=== PATIENT | female | born 1950 | race Caucasian/White ===

== ENCOUNTER 2017-09-11 08:11 | Inpatient (IN) ==
[2017-09-03 13:04] LABS: Appearance,Urine CLEAR; Bilirubin,Urine NEG (NEG); Color,Urine STRAW; Glucose,Urine (UA) NEGATIVE (NEG); Leukocyte Esterase,Urine NEG /uL (NEG); Protein,Urine NEG (NEG); Specific Gravity,Urine 1.011 (1.000-1.035); Urine Blood NEG mg/dL (<0.03); Urobilinogen,Urine NEG (NEG)
[2017-09-03 14:07] LABS: Basophils # (Auto) 0 K/mcL (0.0-0.3); Basophils % (Auto) 0.4 % (0.0-2.0); Eosinophils # (Auto) 0.2 K/mcL (0.0-0.7); Eosinophils % (Auto) 2.8 % (0.0-7.0); Granulocytes % (Auto) 58.3 % (38.0-78.0); Lymphocytes # (Auto) 2.2 K/mcL (1.5-4.8); Lymphocytes % (Auto) 33.5 % (15.5-49.0); Mean Cell Volume 88.6 fL (80.0-100.0); Mean Corpuscular HGB Conc 33.3 g/dL (31.0-36.0); Mean Corpuscular Hemoglobin 29.5 pg (26.0-34.0); Monocytes # (Auto) 0.3 K/mcL (0.1-0.9); Platelet Count 299 K/mcL (140-440); RBC 4.96 M/mcL (4.00-5.20); Red Cell Distribution Width 12.6 % (11.5-14.5)
[2017-09-03 14:18] LABS: Blood Urea Nitrogen 22 mg/dl (8-23)
[~2017-09-11 08:11] MED LIST: CELECOXIB 200 MG CAPSULE PO SCH; ceFAZolin 1 GM VIAL IV SCH; oxyCODONE 10 MG TAB.ER.12H PO SCH
[2017-09-11] MEDS: GABAPENTIN 300 MG CAPSULE PO SCH ×4 (09:22→20:30)
[2017-09-11] MEDS ORDERED: PROPOFOL 200 MG/20 ML VIAL IV ONE (12:05)
[2017-09-11] MEDS ORDERED: LIDOCAINE HCL/PF 100 MG/5 ML SYRINGE IV ONE (12:05)
[2017-09-11] MEDS ORDERED: ePHEDrine 50 MG/ML AMPUL IV ONE (12:05)
[2017-09-11] MEDS ORDERED: SUCCINYLCHOLINE 20 MG/ML ML IV ONE (12:05)
[2017-09-11] MEDS ORDERED: DEXAMETHASONE 10 MG/ML VIAL IV ONE (12:05)
[2017-09-11] MEDS ORDERED: TRANEXAMIC ACID 1,000 MG/10 ML VIAL IV ONE (12:05)
[2017-09-11] MEDS ORDERED: fentaNYL 100 MCG/2 ML VIAL IV ONE (12:05)
[2017-09-11] MEDS ORDERED: KETAMINE 100 MG/ML ML IV ONE (12:05)
[2017-09-11] MEDS ORDERED: ONDANSETRON 4 MG/2 ML VIAL IV ONE (12:05)
[2017-09-11] MEDS ORDERED: MIDAZOLAM 5 MG/5 ML VIAL IV ONE (12:05)
[2017-09-11] MEDS ORDERED: NALOXONE HCL 0.4 MG/ML VIAL IV PRN (13:13)
[2017-09-11] MEDS ORDERED: BENZOCAINE/MENTHOL 1 LOZENGE PO PRN ×2 (13:13→13:45)
[2017-09-11] MEDS ORDERED: IPRATROPIUM/ALBUTEROL 3 ML AMPUL.NEB NEB PRN (13:13)
[2017-09-11] MEDS ORDERED: ONDANSETRON 4 MG/2 ML VIAL IV PRN ×2 (13:13→13:45)
[2017-09-11] MEDS ORDERED: LACTATED RINGERS 250 ML IV PRN (13:13)
[2017-09-11] MEDS ORDERED: diphenhydrAMINE 50 MG/ML VIAL IV PRN (13:13)
[2017-09-11] MEDS ORDERED: MEPERIDINE 25 MG/ML SYRINGE IV PRN (13:13)
[2017-09-11] MEDS ORDERED: PROMETHAZINE 25 MG/ML VIAL IV PRN (13:13)
[2017-09-11] MEDS ORDERED: ACETAMINOPHEN 1,000 MG/100 ML BOTTLE IV ONE (13:13)
[2017-09-11] MEDS ORDERED: FLUMAZENIL 0.1 MG/ML ML IV PRN (13:13)
[2017-09-11] MEDS ORDERED: LACTATED RINGERS 1,000 ML IV SCH (13:15)
[2017-09-11] MEDS ORDERED: BUPIVACAINE 0.5% 50 ML VIAL IJ ONE (13:44)
[2017-09-11] MEDS ORDERED: FLEETS ADULT ENEMA PR PRN (13:45)
[2017-09-11] MEDS ORDERED: POLYETHYLENE GLYCOL 3350 17 GM PACKET PO PRN (13:45)
[2017-09-11] MEDS ORDERED: BISACODYL 10 MG SUPP.RECT PR PRN (13:45)
[2017-09-11] MEDS ORDERED: TRANEXAMIC ACID 1,000 MG/10 ML VIAL IV SCH (13:45)
[2017-09-11] MEDS ORDERED: MAGNESIUM HYDROXIDE 30 ML ORAL.SUSP PO PRN (13:45)
[2017-09-11] MEDS ORDERED: HYDROmorphone 2 MG/ML VIAL IV PRN (13:45)
--- NOTE | 2017-09-11 13:45 | Brief Operative Note ---
Date of procedure: 09/11/17 Pre-op diagnosis: Left shoulder osteoarthritis Post-op diagnosis: same Procedure: 1)Left total shoulder arthroplasty 2)Left biceps tenodesis Grafts/Implants: Yes (Tornier aequalis titanium 41 HO head, 4 ascend flex std stem, 35 s cortiloc) Anesthesia: GETA Findings: arthritis Complications: none Surgeon: Jevon Gonzalez Senior Materials Planner: Michael Mejia Estimated blood loss (cc): 100 Specimens Removed/Pathology: none sent Condition: stable Disposition: PACU
[2017-09-11] MEDS ORDERED: fentaNYL 25 MCG PATCH TOPICAL SCH (14:00)
[2017-09-11] MEDS: fentaNYL 100 MCG/2 ML VIAL IV PRN ×4 (14:28→14:36)
[2017-09-11] MEDS: KETOROLAC 30 MG/ML VIAL IV PRN ×2 (14:37→20:28)
[2017-09-11] MEDS: HYDROmorphone 2 MG/ML VIAL IV PRN ×2 (14:41→14:57)
[2017-09-11] MEDS ORDERED: METHOCARBAMOL 1,000 MG/10 ML VIAL IV ONE (14:53)
--- NOTE | 2017-09-11 14:58 | XRay Report ---
CLINICAL INFORMATION: Reason for Exam:Post-Op Total Shoulder COMPARISON: None. FINDINGS: Shoulder prostheses is anatomically aligned. No osseous abnormality. Soft tissues swelling seen as expected IMPRESSION: Negative Interpreted and Authenticated by: Christiano Vaz 09/11/17
[2017-09-11] MEDS ORDERED: LORazepam 2 MG/ML VIAL IV PRN (15:02)
[2017-09-11] MEDS: 0.9 % SODIUM CHLORIDE 1,000 ML IV SCH (15:46)
[2017-09-11] MEDS: 0.9 % SODIUM CHLORIDE 10 ML SYRINGE IV SCH ×2 (15:48→20:31)
[2017-09-11] MEDS: HYDROcodone/APAP 10/325MG TABLET PO SCH ×2 (15:56→20:30)
[2017-09-11] MEDS: oxyCODONE HCL 5 MG TABLET PO PRN ×2 (17:45→23:57)
[2017-09-11] MEDS: ceFAZolin 1 GM VIAL IV SCH (20:28)
[2017-09-11] MEDS: DOCUSATE SODIUM 100 MG CAPSULE PO SCH (20:29)
[2017-09-11] MEDS ORDERED: CARISOPRODOL 350 MG TABLET PO SCH (21:00)
[2017-09-11] MEDS ORDERED: ZOLPIDEM 5 MG TABLET PO SCH (21:00)
[2017-09-11] MEDS ORDERED: SENNOSIDES 1 TABLET PO SCH (21:00)
[2017-09-11] MEDS ORDERED: ATORVASTATIN 20 MG TABLET PO SCH (21:00)
[2017-09-12] MEDS: ceFAZolin 1 GM VIAL IV SCH (04:46)
[2017-09-12] MEDS: 0.9 % SODIUM CHLORIDE 10 ML SYRINGE IV SCH (04:46)
[2017-09-12] MEDS: oxyCODONE HCL 5 MG TABLET PO PRN ×2 (04:46→10:36)
[2017-09-12] MEDS: 0.9 % SODIUM CHLORIDE 1,000 ML IV SCH (05:06)
[2017-09-12] MEDS ORDERED: THYROID, PORK 60 MG TABLET PO SCH (07:30)
[2017-09-12] MEDS ORDERED: PANTOPRAZOLE 40 MG TABLET PO SCH (07:30)
--- NOTE | 2017-09-12 07:43 | Discharge Summary ---
Providers - Providers Patient information: Note initiated : 09/12/17 at 7:40 am Service Date, if different from initiated Date: [] Patient: Michelle Peters 67 y/o F admitted on 09/11/17 for Left Total Shoulder Arthroplasty Resurfacing with . Chief Complaint: [] Discharge date: 09/12/17 Hospitalization Hospital course: Pt was admitted for a L Total shoulder arthroplasty. Pt underwent the procedure on the day of admission. Pt was then transferred to the floor for IV pain meds, IV abx, and PT. Pt discharged on post-op day 1 with appropriate pain medication. Pt will f/u at [facility] in 2 weeks. Discharge diagnosis: L shoulder osetoarthrosis Exam - Exam Clean and dry: Yes Weight bearing status: none Ortho Discharge - TSA - Patient Instructions Diet: Regular Diet Activity: non weight bearing Total Shoulder Protocol: Leave immobilizer in place except for bathing and ROM. Abduction pillow. Continue to wear sling until seen by physician. Codman Pendulum : These exercises use momentum produced by your body to move your shoulder joint. Bend your knees and shift your weight to your front leg, then back, allowing your arm to swing in the same directions. Using the same technique, alternately shift your weight between your right and left legs, allowing your arm to swing from side to side. These exercises are also performed in counterclockwise and clockwise circular motions. Typically these exercises are performed several times per day, for a set number repetitions or minutes, such as 20 times in a row or 5 minutes at a time. Dressing Care: May shower in 2 days Patient Education: Shoulder Arthroplasty (DC) - Follow Up Plan Follow Up Appointments: Michael Mejia PA-C [Physician Hydraulic Press Operator] - 09/26/17 3:10 pm Disposition: Home, Self-Care Prognosis: Good Rehab Potential: Good Overall status at discharge: patient is progressing back to baseline - Orders For Discharge Prescriptions: HYDROcodone/APAP 10/325MG [[place] 10-325Mg] 1 - 2 tab PO Q6 #80 tab Pending Studies Resuscitation Status Full Code Diet Consistent Carbohydrate Diet Start SatSep 11 134 Hydrocodone Bitart/Acetaminophen ([place] 10/325mg) 1 tab PO TID [facility] Last Admin: 09/11/17 20:30 Dose: 1 tab Admin: 09/11/17 15:56 Dose: 1 tab Atorvastatin Calcium (Lipitor) 20 mg PO [facility] Last Admin: 09/11/17 20:29 Dose: 20 mg Carisoprodol (Soma) 175 mg PO HS [facility] Last Admin: 09/11/17 20:29 Dose: 175 mg Docusate Sodium (Colace) 100 mg PO BID [facility] Last Admin: 09/11/17 20:29 Dose: 100 mg Fentanyl (Duragesic) 25 mcg TOPICAL Q72H [facility] Last Admin: 09/11/17 14:41 Dose: 25 mcg Gabapentin (Neurontin) 300 mg PO TID [facility] Last Admin: 09/11/17 20:30 Dose: 300 mg Admin: 09/11/17 15:47 Dose: 300 mg Hydromorphone HCl (Dilaudid) 0 mg IV Q2HP PRN PRN Reason: PAIN LEVEL > 6 Last Admin: 09/11/17 15:55 Dose: 0.5 mg Sodium Chloride (Sodium Chloride 0.9%) 1,000 mls @ 75 mls/hr IV .[id number] [facility] Last Admin: 09/12/17 05:06 Dose: Not Given Infusion: 09/12/17 05:06 Dose: 0 mls/hr Admin: 09/11/17 15:46 Dose: 75 mls/hr Ketorolac Tromethamine (Toradol) 15 mg IV Q6HP PRN PRN Reason: Pain Stop: 09/13/17 13:48 Last Admin: 09/11/17 20:28 Dose: 15 mg Admin: 09/11/17 14:37 Dose: 15 mg Oxycodone HCl (Roxicodone) 0 mg PO Q4HP PRN PRN Reason: PAIN LEVEL 3-6 Last Admin: 09/12/17 04:46 Dose: 10 mg Admin: 09/11/17 23:57 Dose: 10 mg Admin: 09/11/17 17:45 Dose: 10 mg Pantoprazole Sodium (Protonix) 40 mg PO QAMAC [facility] Last Admin: 09/12/17 07:31 Dose: 40 mg Senna (Senokot) 2 tab PO [facility] Last Admin: 09/11/17 20:30 Dose: 2 tab Sodium Chloride (Saline Flush) 10 ml IV Q8 [facility] Last Admin: 09/12/17 04:46 Dose: 10 ml Admin: 09/11/17 20:31 Dose: Not Given Admin: 09/11/17 15:48 Dose: Not Given Thyroid (Thyroid) 90 mg PO ACB [facility] Last Admin: 09/12/17 07:31 Dose: 90 mg Zolpidem Tartrate (Ambien) 5 mg PO HS [facility] Last Admin: 09/11/17 22:00 Dose: Not Given Shift Summary 09/12/17 04:18 Shift Summary by Anshul Pritchett up to BR w/SBA, PVR 15-19mls, immobilizer to LUE, needs continued reminders to be NWB to LUE, tolerating diet well, will SL IV to RUE this AM after last dose of Ancef, medicated with scheduled norco TID last at 2100 and roxicodone 10mg Q4H, fentanyl patch 25mcg in place, received toradol 15mg x1 thus far, dsg with fingerprint allen only otherwise CDI, AVB on t/o night, uses IS with encouragement, should d/c home today Initialized on 09/12/17 04:18 - END OF NOTE
[2017-09-12] MEDS: HYDROcodone/APAP 10/325MG TABLET PO SCH (08:51)
[2017-09-12] MEDS: GABAPENTIN 300 MG CAPSULE PO SCH (08:53)
[2017-09-12] MEDS: DOCUSATE SODIUM 100 MG CAPSULE PO SCH (08:53)
[2017-09-12] MEDS ORDERED: HYDROCHLOROTHIAZIDE 12.5 MG CAPSULE PO SCH (09:00)
[2017-09-12] MEDS ORDERED: ESCITALOPRAM 10 MG TABLET PO SCH (09:00)
[2017-09-12] MEDS ORDERED: MULTIVIT,THER IRON,CA,FA & MIN 1 TABLET PO SCH (09:00)
[2017-09-12] MEDS ORDERED: LISINOPRIL 20 MG TABLET PO SCH (09:00)
[2017-09-12] MEDS ORDERED: ASCORBIC ACID 500 MG TABLET PO SCH (09:00)
--- NOTE | 2017-09-12 09:35 | Operative Note ---
DATE OF OPERATION: 09/11/2017 PREOPERATIVE DIAGNOSIS: Left shoulder osteoarthritis. POSTOPERATIVE DIAGNOSIS: Left shoulder osteoarthritis. PROCEDURE PERFORMED: 1. Left total shoulder arthroplasty using a Tornier size small cortical lock 35 curvature glenoid, Aequalis Ascend Flex standard size 4 titanium stem with a titanium Aequalis humeral head size 41 high eccentricity. 2. Soft tissue biceps tenodesis. SURGEON: Jevon Gonzalez MD. CROWN PERFORATOR OPERATOR: Niranjan Mejia PA-C. ANESTHESIA: General. DRAINS: None. SPECIMENS: Bone cuts, which were discarded. BLOOD LOSS: 150 mL COMPLICATIONS: None. POSTOPERATIVE CONDITION: Stable. INDICATIONS FOR SURGERY: This is a 67-year-old female who has had longstanding progressive worsening left shoulder pain. She does have radiographs which show joint space narrowing of the glenohumeral joint with osteophyte formation of the humeral head. FINDINGS AT SURGERY: Significant osteoarthritis. PROCEDURE IN DETAIL: The patient had been seen preoperatively and informed consent had been obtained after discussion of risks and benefits of surgery. Risks including, but not limited to, bleeding; infection, possibly requiring implant removal and prolonged IV antibiotics; injury to nerves, blood vessels other surrounding structures, incomplete or no resolution of symptoms, this being higher risk given her chronic narcotic use, stiffness, pain, weakness; dislocation; fracture, possibility of needing further revision surgery. She understood these risks and wished to proceed. Correct operative site was marked and the patient was taken to the operating room. General anesthesia was induced. She was carefully positioned in the beach chair position and pressure points carefully padded. Left shoulder and upper extremity were then carefully prepped and draped in normal sterile fashion and a timeout was performed verifying patient name, operative site, and plan. Standard deltopectoral incision was made with scalpel through skin and subcutaneous tissue and then hemostasis obtained with Bovie cautery. Careful blunt dissection was taken down on the cephalic vein and this was dissected laterally with the deltoid. Subdeltoid space was bluntly dissected with a finger and then lateral edge of the conjoint tendon was identified and blue handle retractor placed underneath. The biceps was identified and unroofed along its course and then amputated off of the superior glenoid. We then used a curved osteotome to perform a lesser tuberosity osteotomy. A traction suture was placed on this and then the humeral head was dislocated as the arm was externally rotated. We then released capsule around the inferior neck. Osteotome was used then to remove osteophytes. We then used awl with a Tornier cutting guide and then used a freehand technique to osteotomize our humeral head. We then used a canal finding awl and then began sequentially broaching the canal sounders up to a size 4. We then used the broaches using the version myesha to broach up to a size 4. This did seat slightly proud of our humeral neck cut. Cut protector was placed in the humeral head was subluxed posteriorly and the glenoid exposed. Labrum was excised circumferentially and capsule released around the inferior glenoid with Bovie. We then checked her glenoid radius of curvature which was a 35 and size was very small, so we chose a small and using a 10 degree angled drill guide, we placed our pin. We then used the reamer to a ream the glenoid down to some subchondral bone. We then went ahead and drilled our central peg hole. We then removed the guide pin and used the peripheral drill guide to drill our three peripheral holes. We then trialled a trial which fit nicely, so we went ahead and opened a small 35 quarter-lock glenoid. We irrigated the joint with IrriSept and while cement was being mixed I placed DBX within the fins of the central peg. We then pulse lavaged with saline and then pressurized and cemented the three peripheral peg holes and impacted the glenoid component until it was flush and this was held with pressure on it until cement had fully hardened. We then redislocated and trialed the humeral head trial, size 41. It required the high offset she eccentricity to cover his head most anatomically. This was trialled, it subluxed posteriorly 50% and there was good range of motion, so we went ahead and removed the trial. Definitive implants were opened, a size 4 with a highly eccentric head size 41 and the dial was positioned where it was on the trial. We irrigated the canal with IrriSept, after a minute we pulse lavaged with saline. The implant was then impacted. We made two drill holes in the bicipital groove and used a #2 FiberWire and a cutter through these holes and around the lesser tuberosity fragment creating a [id number] suture. We also used several [id number] in the rotator interval. The biceps was also tenodesed with FiberWire. The proximal stump was amputated. We did another IrriSept irrigation, after a minute pulse lavage and then a running #1 Vicryl was used for the deltopectoral interval, 2-0 Monocryl for subcutaneous and demetrice for skin. Xeroform sterile dressing applied. Donjoy immobilizer was placed and the patient was awakened, extubated, and transferred to recovery in stable condition. [email or web address]:[email or web address] Job ID: [id number] Doc ID: [id number] Jevon Gonzalez MD
== END 2017-09-12 11:24 | disposition home or self-care (01) | DRG 483 ==
LOC: MEDSUR 08:11
PROVIDERS: ADMIT Orthopaedic Surgery; ATTEND Orthopaedic Surgery